=== PATIENT | male | born 1925 | race Caucasian/White ===

== ENCOUNTER 2017-05-29 10:06 | Inpatient (IN) | payer MEDICARE, OTHER ==
[~2017-05-29] VITALS: Ht 170.2 cm; Wt 80.0 kg
--- NOTE | ~2017-05-29 | US6 ---
[facility] A Service of [facility] RADIOLOGY TEXT RESULTS PATIENT: ROBBI DELGADO JR LOCATION: [address] : [birth year] UNIT #: [id number] AGE: [address]: Gianni De Souza MD SEX: M ORDER DR: [id number] [facility] [address] [place], [place] [address] [id number] I MR#: [id number] Acc #: [id number] NAME: ROBBI DELGADO : 1925 SEX: M STUDY DATE/TIME: 05/30/2017 8:15 UNIT: [facility] ROOM: [facility] STUDY DESCRIPTION: US Abdominal Limited Attending Physician: Gume Guzman M.D. Ordering Physician: Gerardo Don M.D. Primary Care Physician: Louie Bledsoe Jr., M.D. MEDICAL IMAGING REPORT This report is preliminary unless electronic signature is present EXAM Right upper quadrant ultrasound 05/30/2017 HISTORY Right upper quadrant gallbladder distension abnormal gallbladder, CT examination 05/29/2017. FINDINGS Real-time ultrasonography of the right upper quadrant performed. Comparison to a CT examination 05/29/2017. The pancreas is poorly visualized due to overlying bowel gas artifact. Please see CT abdomen and pelvis dated 05/29/2017 for further assessment. No peripancreatic fluid collection suggested on these images. The liver is heterogeneous in echotexture. No focal hepatic parenchymal abnormality is suggested. The portal vein is patent with normal direction of flow. Trace ascites. Small right pleural effusion. Liver upper limits of normal in size measuring about 17.3 cm in craniocaudal extent. The gallbladder is mildly distended measuring 4.4 cm in transverse diameter. This could be physiologic in nature. There is gallbladder sludge and at least 1 gallstone present. The gallbladder wall is upper limits of normal thickness at 3.3 mm. No definite pericholecystic fluid. There is no intrahepatic ductal dilatation. The extrahepatic common duct is dilated at about 7 mm. No obstructing process seen. This could be physiologic in nature. Correlate with laboratory data and clinical presentation for any indications of acute cholecystitis. The right kidney measures 10.2 cm in greatest length. There is generalized renal cortical thinning. There is a calculus in the lower pole of the right kidney measuring up to 5.5 mm in diameter. There is no pericholecystic fluid. IMPRESSION 1. Gallbladder is mildly distended but possibly within physiologic STS. [facility] A Service of [facility] RADIOLOGY TEXT RESULTS PATIENT: ROBBI DELGADO JR LOCATION: [facility]2-11 : [birth year] UNIT #: [id number] AGE: [address]: Gianni De Souza MD SEX: M ORDER DR: limits. Gallbladder sludge and at least 1 gallstone are seen. There is gallbladder wall prominence relative to volume with gallbladder wall measuring about 3.3 mm in thickness. The constellation of findings could be a reflection of cholecystitis. Please correlate with laboratory data and clinical presentation. There is no intrahepatic biliary ductal dilatation. The extrahepatic common duct is prominent at 7 mm in diameter. No obstructing process seen on this examination. Again correlate with laboratory data. Given patient's age, it is possible that this caliber of common bile duct is within physiologic limits. 2 Trace ascites adjacent to the liver. 3. Small right pleural effusion. 4. Right lower pole renal calculus. 5. Pancreas poorly visualized due to bowel gas obscuration. See yesterday's CT for further assessment. Dictated by... Boston Card M.D. THIS IS AN ELECTRONICALLY VERIFIED REPORT Boston Card M.D. at 05/31/2017 6:17 PM Merlene TD: 05/30/2017 10:54 JOB #: [id number] MEDICAL IMAGING REPORT Page 1 of 1 COPY
--- NOTE | ~2017-05-29 | CT4 ---
[facility] A Service of [facility] & [facility] RADIOLOGY TEXT RESULTS PATIENT: ROBBI DELGADO JR LOCATION: [address] : [birth year] UNIT #: [id number] AGE: [address]: Khai Shafer MD SEX: M ORDER DR: [id number] [facility] [address] [place], [place] [address] [id number] I MR#: [id number] Acc #: [id number] NAME: ROBBI DELGADO : 1925 SEX: M STUDY DATE/TIME: 05/29/2017 13:12 UNIT: [facility] ROOM: [facility] STUDY DESCRIPTION: CT Abd and Pelv Wo Cont Attending Physician: Khai Shafer M.D. Ordering Physician: Khai Shafer M.D. Primary Care Physician: Louie Bledsoe Jr., M.D. MEDICAL IMAGING REPORT This report is preliminary unless electronic signature is present EXAM Abdomen and pelvis CT without contrast, 05/29/2017 INDICATION Cardiogenic shock acidosis, heartburn 3 days, acute renal injury. Decreased appetite. Ventilator patient. Shortness of air. TECHNIQUE Noncontrast CT of the abdomen and pelvis was performed. This CT exam was performed with one or more of the following radiation dose reduction techniques: automatic exposure control, adjustment of mA and/or kV according to patient size, and iterative reconstruction. COMPARISON None FINDINGS CT ABDOMEN: Exam degraded by noncontrast technique. Please see separately dictated chest CT for further details. At least moderate bilateral effusions are present with compressive atelectasis or pneumonia in both lung bases. No pericardial effusion. Aorta demonstrates no aneurysm with significant atherosclerotic change. IVC filter present. Spleen and adrenal glands are unremarkable. The kidneys are nonobstructed. There is inflammatory change and wall thickening of the gallbladder in the setting of cholelithiasis with inflammatory change extending into the pancreaticoduodenal groove. There is atrophy of the pancreas and inflammatory change extending into the peripancreatic fat and celiac takeoff. Imaging findings suggest acute cholecystitis although acute pancreatitis and secondary involvement of the gallbladder is also in the differential. Correlate with laboratory data. Probable reactive adjacent lymph nodes. Trace perihepatic ascites. No intra or STS. [facility] A Service of [facility] & [facility] RADIOLOGY TEXT RESULTS PATIENT: ROBBI DELGADO JR LOCATION: [facility]2-11 : [birth year] UNIT #: [id number] AGE: [address]: Khai Shafer MD SEX: M ORDER DR: extrahepatic biliary ductal dilatation. Liver otherwise unremarkable. CT PELVIS: Bladder decompressed by a Tran catheter. Prostate unremarkable. Small amount of free fluid in the pelvis. Diverticulosis. Trace fluid in both pericolic gutters. Appendix normal. No inguinal adenopathy or fluid collection. Right femoral central line present. No suspicious bone lesion. The bones are osteoporotic. IMPRESSION 1. Abnormal examination. Imaging findings are most characteristic of acute cholecystitis or potentially acute pancreatitis. Correlate with laboratory data. Findings called to the patient's nurse at the time of this dictation. 2. Small amount of peripancreatic, perihepatic, perisplenic fluid tracking into the pericolic gutters and the pelvis. No drainable fluid collection. 3. Bilateral effusions with compressive atelectasis or pneumonia in both lung bases. 4. Diverticulosis. 5. Appendix normal. STAT * RESULT Dictated by... Ced Maier M.D. THIS IS AN ELECTRONICALLY VERIFIED REPORT Ced Maier M.D. at 05/29/2017 10:41 PM Jose Luis TD: 05/29/2017 16:28 JOB #: [id number] MEDICAL IMAGING REPORT Page 1 of 1 COPY
--- NOTE | ~2017-05-29 | EKG ---
PATIENT: ROBBI DELGADO UNIT #: [id number] Ventricular Rate: 94 BPM Atrial Rate: 113 BPM QRS Duration: 92 ms Q-T Interval: 334 ms QTC Calculation(Bezet): 417 ms Calculated R [place]: -6 degrees Calculated T [place]: -175 degrees Diagnosis Line: Atrial fibrillation Diagnosis Line: Low voltage QRS Diagnosis Line: Cannot rule out Inferior infarct , age Diagnosis Line: undetermined Diagnosis Line: Cannot rule out Anteroseptal infarct , age Diagnosis Line: undetermined Diagnosis Line: Abnormal ECG Diagnosis Line: When compared with ECG of 30-MAY-2017 12:19, Diagnosis Line: (unconfirmed) Diagnosis Line: Left bundle branch block is no longer Present Diagnosis Line: Minimal criteria for Anteroseptal infarct are now Diagnosis Line: Present Diagnosis Line: Minimal criteria for Inferior infarct are now Diagnosis Line: Present Diagnosis Line: Confirmed by CECIL TOTH MD ([id number]) on 05/31/2017 Diagnosis Line: 5:00:34 PM INTERPRETING MD: NAVNEET QUICK
--- NOTE | ~2017-05-29 | US77 ---
[facility] A Service of [facility] & [facility] RADIOLOGY TEXT RESULTS PATIENT: ROBBI DELGADO JR LOCATION: [address] : [birth year] UNIT #: [id number] AGE: [address]: Gianni De Souza MD SEX: M ORDER DR: [id number] [facility] [address] [place], [place] [address] [id number] I MR#: [id number] Acc #: [id number] NAME: ROBBI DELGADO JR : 1925 SEX: M STUDY DATE/TIME: 05/30/2017 8:24 [facility]: [facility] STUDY DESCRIPTION: US Kidney Bilateral Complete Attending Physician: Gume Guzman M.D. Ordering Physician: Tereso Spence M.D. Primary Care Physician: Louie Bledsoe Jr., M.D. MEDICAL IMAGING REPORT This report is preliminary unless electronic signature is present EXAM Renal ultrasound bilateral, 05/30/2017 HISTORY Acute renal failure, abnormal renal function tests. Elevated BUN of 39, elevated creatinine of 2.4. Abnormally low GFR of 23.1. Chronic kidney disease stage 4. Followup diabetes and hypertension. FINDINGS The right kidney measures 10.8 cm while the left kidney measures 12.4 cm in longitudinal dimensions. There is no evidence of hydronephrosis. There is a 7 mm nonobstructing stone in the lower pole of the right kidney. No solid mass lesions are identified. There is normal renal cortical echogenicity but there is cortical thinning bilaterally. The bladder was decompressed by a Tran catheter and therefore poorly visualized. IMPRESSION 1. Both kidneys demonstrate cortical thinning but there is no evidence of hydronephrosis. Nonobstructing right renal stone. 2. The bladder was empty for the exam and therefore poorly visualized. Dictated by... Yonatan Mcnair M.D. THIS IS AN ELECTRONICALLY VERIFIED REPORT Yonatan Mcnair M.D. at 05/31/2017 7:25 AM JUAN/pilar TD: 05/31/2017 02:28 JOB #: [id number] [facility] A Service of [facility] & [facility] RADIOLOGY TEXT RESULTS PATIENT: ROBBI DELGADO JR LOCATION: [facility] : [birth year] UNIT #: [id number] AGE: [address]: Gianni De Souza MD SEX: M ORDER DR: MEDICAL IMAGING REPORT Page 1 of 1 COPY
--- NOTE | ~2017-05-29 | CO ---
Unit #: [id number] #: [id number] Patient: SONIA ISBELL JR [id number] [address] [place], [place] [address] [id number] I MR#: [id number] NAME: SONIA ISBELL ROOM: [facility] Age: 89 Sex: M Admission Date: 05/29/2017 : 1925 Attending Physician: Gume Guzman M.D. Primary Care Physician: Louie Bledsoe Jr., M.D. Consultation Date: 05/29/2017 CONSULTATION REPORT REASON FOR CONSULTATION Renal failure and hyperkalemia. Thank you very much for asking me to see this patient in consultation. HISTORY OF PRESENT ILLNESS Mr. Sonia Isbell is an 89-year-old male, who presented to the hospital here, unable to find a family. They are apparently somewhere around, but I have gone to four to five different places and I cannot find them, but apparently according to the ER, came in with some epigastric lower chest pain, weakness, and shortness of breath for 3 days. Upon presentation, noted to have a BUN and creatinine 42 and 2.7 with potassium of 6.4, bicarb of 18. He had a troponin increased to 13.8. He was subsequently intubated and now is on pressor, Levophed drip I believe as well as IV fluids and normal saline and antibiotics ordered. We were asked to see the patient because of the above. Reviewing the records, the patient was noted in 09/2015 to have a creatinine of 1.4. In reviewing his records, his creatinine has been 1.3 to 1.4 plus or minus intermittently over the last few years. 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 Again, he is currently intubated, decreased response. Blood pressure currently in the 90s. PAST MEDICAL HISTORY Again, through the chart, he has a history of atherosclerotic coronary artery disease, history of atrial fibrillation in the past, he is on chronic Coumadin, status post pacemaker, history of hypertension, history of diabetes mellitus, history of osteoarthritis, history of probable chronic kidney disease, stage 3 again with creatinine baseline 1.4. 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 ALLERGIES Include Ambien. SOCIAL HISTORY He does not smoke or drink. MEDICATIONS At home include Catapres, Coumadin, metoprolol, amlodipine, losartan, and Protonix. Here, he is on normal saline currently; although, a bicarb drip was ordered, had not started it yet. Sitting at bedside. Levophed drip. ProAmatine was ordered; although, certainly had not started yet. Maxipime, Versed, doxycycline, Protonix. He was also ordered some Kayexalate, but again unable to get that at this moment in time, but a Dobhoff tube has been ordered. Unit #: [id number] #: [id number] Patient: SONIA ISBELL JR REVIEW OF SYSTEMS As mentioned in the HPI. Really unable to obtain. FAMILY HISTORY Unable to obtain. PHYSICAL EXAMINATION VITAL SIGNS: Temperature is 97.6, pulse 63 to 66, blood pressure 73 to 98 over 50s to 80s. HEENT: He is normocephalic and atraumatic. His pupils are sluggish, but reactive. He is orally intubated. NECK: Supple. No adenopathy. CARDIAC: He is without a rub. No S3 or S4. LUNGS: Have a few rhonchi only. ABDOMEN: Bowel sounds positive. Nontender, soft. No masses felt. No hepato-organomegaly noted. EXTREMITIES: He has no lower extremity swelling. His pulses are intact in upper and lower extremities. JOINTS: No joint pain or joint swelling. SKIN: No acute rashes. NEUROLOGIC: Again, decreased response. : Tran catheter is in place. Normal penis and testicles. DIAGNOSTIC STUDIES LABORATORY RESULTS: Initially, his sodium was 140, potassium 6.4, chloride is 108, bicarb is 18, BUN and creatinine are 42 and 2.7, glucose 128, calcium is 9.1, phosphorus 3.7, magnesium is 2.1, lactic acid is 6, albumin is 3.3. His anion gap is 14. Repeat labs showed a sodium of 141, potassium down to 5.6, chloride 114, bicarb is 16 now, BUN of 40 and creatinine 2.4. AST is 173, ALT is 41. CPK is 803 with a troponin of 13.8. INR is 3.5. Hemoglobin 12.8, white count 21,000, platelets 195,000. IMAGING STUDIES: Chest x-ray was consistent with some pulmonary edema. CT scan of the chest and stat echo again had been ordered and are pending. ASSESSMENT AND PLAN 1. Acute kidney injury on probable chronic kidney disease, stage 3. The patient with again increased BUN and creatinine, most likely combination of hypotension and acute tubular necrosis. He also appears to be septic at least with increased white count and hypotension; although, with certainly increased troponin, he could have some sort of cardiac event as well. Certainly, agree with checking a stat echo. Agree with current treatment of fluids and a bicarb drip, although, has not again started yet. We will check urine studies. If CT scan of the abdomen and pelvis had not been ordered, then we will go ahead and do a renal ultrasound portable as well. We will check labs later this afternoon and then in morning. I am going to continue to look for family to see if we can discuss if things do not improve, if they want him to be put on the dialysis machine or not. Again, I need to discuss it with them. 2. Hyperkalemia secondary to renal failure, acidosis. Potassium is down to 5.6. We will recheck again and treat medically if possible. 3. Acidosis, the patient with mild increased anion gap. Most likely, the acidosis is related to lactic acidosis as well as acute renal failure. I agree with bicarb drip. Hopefully, will improve with increased blood pressure etc. 4. Increased troponin, probable myocardial infarction. 5. Rule out sepsis. Unit #: [id number] #: [id number] Patient: SONIA ISBELL JR 6. Diabetes mellitus. Dictated by.Rosana Spence M.D. MARYCHUY/melal TD: 05/29/2017 16:08 JOB #: [id number] CONSULTATION REPORT Page 1 of 1 X Neelima Spence MD X CONSULTATION REPORT
--- NOTE | ~2017-05-29 | CR72 ---
[facility] A Service of [facility] & [facility] RADIOLOGY TEXT RESULTS PATIENT: ROBBI DELGADO JR LOCATION: [facility]2-11 : [birth year] UNIT #: [id number] AGE: [address]: Gume Guzman MD SEX: M ORDER DR: [id number] [facility] [address] [place], [place] [address] [id number] MR#: [id number] Acc #: [id number] NAME: ROBBI DELGADO JR : 1925 SEX: M STUDY DATE/TIME: 05/29/2017 10:47 UNIT: [facility] ROOM: STUDY DESCRIPTION: CR Chest Single View Portable Attending Physician: Zander Dc M.D. Ordering Physician: Zander Dc M.D. Primary Care Physician: Louie Bledsoe Jr., M.D. MEDICAL IMAGING REPORT This report is preliminary unless electronic signature is present EXAM Portable chest, 05/29/2017 HISTORY Shortness of breath, heartburn and generalized weakness for 3 days. Benign essential hypertension and diabetes, coronary artery disease and prior cardiac bypass surgery. FINDINGS The cardiac and mediastinal structures are stable compared with 10/05/2015 status post median sternotomy. Cardiac pacemaker is unchanged. There are interstitial infiltrates suggesting mild pulmonary edema. Blunting of the costophrenic angles is seen bilaterally. No pneumothorax. IMPRESSION Interstitial infiltrates suggest mild pulmonary edema. Dictated by... Yonatan Mcnair M.D. THIS IS AN ELECTRONICALLY VERIFIED REPORT Yonatan Mcnair M.D. at 05/30/2017 10:34 AM JUAN/richmond TD: 05/29/2017 11:03 JOB #: [id number] MEDICAL IMAGING REPORT Page 1 of 1 COPY
--- NOTE | ~2017-05-29 | CR72 ---
[facility] A Service of [facility] & [facility] RADIOLOGY TEXT RESULTS PATIENT: ROBBI DELGADO JR LOCATION: [place] [address]-11 : [birth year] UNIT #: [id number] AGE: [address]: Khai Shafer MD SEX: M ORDER DR: [id number] [place] [id number] [facility] [place], [place] [address] [id number] I MR#: [id number] Acc #: [id number] NAME: ROBBI DELGADO : 1925 SEX: M STUDY DATE/TIME: 05/29/2017 18:35 UNIT: [facility] ROOM: [facility] STUDY DESCRIPTION: CR Chest Single View Portable Attending Physician: Khai Shafer M.D. Ordering Physician: Khai Shafer M.D. Primary Care Physician: Louie Bledsoe Jr., M.D. MEDICAL IMAGING REPORT This report is preliminary unless electronic signature is present EXAM Frontal chest 05/29/2017 INDICATIONS Dobbhoff tube placement TECHNIQUE Frontal chest was performed. Correlation is made with CT 15:35 hours FINDINGS There is an enteric tube present the tip projects just distal to the yuly by a distance of about 2 cm. Suggest advancement on the order of 15-20 cm for positioning at the level of the stomach. A followup radiograph should be performed to confirm appropriate placement prior to usage of the tube. There are bilateral effusions. There is atelectasis or pneumonia in both mid and lower lung zones. No pneumothorax. Upper lung zone on the right excluded from view. IMPRESSION 1. Enteric tube tip is just inferior to the level of the yuly. This suggests placement within the esophagus. Suggest advancement of the tube to the level of the stomach with a followup radiograph to document appropriate positioning of the tube prior to usage of the tube. 2. No pneumothorax. Bilateral pleural effusions with bibasilar atelectasis or pneumonia. STAT * RESULT Dictated by... [facility] A Service of [facility] RADIOLOGY TEXT RESULTS PATIENT: ROBBI DELGADO JR LOCATION: [address] : [birth year] UNIT #: [id number] AGE: [address]: Khai Shafer MD SEX: M ORDER DR: Ced Maier M.D. THIS IS AN ELECTRONICALLY VERIFIED REPORT Ced Maier M.D. at 05/29/2017 10:47 PM Natalie TD: 05/29/2017 19:41 JOB #: [id number] MEDICAL IMAGING REPORT Page 1 of 1 COPY
--- NOTE | ~2017-05-29 | EKG ---
PATIENT: ROBBI DELGADO UNIT #: [id number] Ventricular Rate: 102 BPM Atrial Rate: 102 BPM P-R Interval: 144 ms QRS Duration: 178 ms Q-T Interval: 436 ms QTC Calculation(Bezet): 568 ms Calculated R [place]: -68 degrees Calculated T [place]: 86 degrees Diagnosis Line: Electronic ventricular pacemaker Diagnosis Line: When compared with ECG of 31-MAY-2017 06:14, Diagnosis Line: Electronic ventricular pacemaker has replaced Diagnosis Line: Atrial fibrillation Diagnosis Line: Confirmed by GUI CORBETT MD ([id number]) on Diagnosis Line: 06/02/2017 10:50:29 AM INTERPRETING MD: ARIC QUICK
--- NOTE | ~2017-05-29 | EKG ---
PATIENT: ROBBI DELGADO UNIT #: [id number] Ventricular Rate: 83 BPM Atrial Rate: 357 BPM QRS Duration: 142 ms Q-T Interval: 398 ms QTC Calculation(Bezet): 467 ms Calculated R [place]: -6 degrees Calculated T [place]: 178 degrees Diagnosis Line: Atrial fibrillation Diagnosis Line: Left bundle branch block Diagnosis Line: Abnormal ECG Diagnosis Line: When compared with ECG of 29-MAY-2017 10:34, Diagnosis Line: Atrial fibrillation has replaced Normal sinus Diagnosis Line: rhythm Diagnosis Line: Confirmed by CECIL TOTH MD ([id number]) on 05/31/2017 Diagnosis Line: 4:54:58 PM INTERPRETING MD: NAVNEET QUICK
--- NOTE | ~2017-05-29 | CR72 ---
[facility] A Service of [facility] & [facility] RADIOLOGY TEXT RESULTS PATIENT: ROBBI DELGADO JR LOCATION: [place] [id number] : [birth year] UNIT #: [id number] AGE: [address]: Gianni De Souza MD SEX: M ORDER DR: [id number] [facility] [address] [place], [place] [address] [id number] I MR#: [id number] Acc #: [id number] NAME: ROBBI DELGADO JR : 1925 SEX: M STUDY DATE/TIME: 05/31/2017 4:19 UNIT: [facility] ROOM: [facility] STUDY DESCRIPTION: CR Chest Single View Portable Attending Physician: Gianni De Souza M.D. Ordering Physician: Chaparro Bruner M.D. Primary Care Physician: Louie Bledsoe Jr., M.D. MEDICAL IMAGING REPORT This report is preliminary unless electronic signature is present EXAM Portable chest INDICATION Respiratory failure, follow up. PROCEDURE Frontal view of the chest. COMPARISON 05/30/2017. FINDINGS Stable heart size. Increasing right pleural effusions. Stable small left effusion. ET tube is stable. IMPRESSION Increasing right pleural effusion. Otherwise, stable. Dictated by... Junito Lynn M.D. THIS IS AN ELECTRONICALLY VERIFIED REPORT Junito Lynn M.D. at 06/01/2017 9:56 PM EED/rodrigue TD: 05/31/2017 11:24 JOB #: [id number] MEDICAL IMAGING REPORT Page 1 of 1 COPY
--- NOTE | ~2017-05-29 | CR72 ---
[facility] A Service of [facility] & [facility] RADIOLOGY TEXT RESULTS PATIENT: ROBBI DELGADO JR LOCATION: [facility]ICCU2-11 : [birth year] UNIT #: [id number] AGE: [address]: Gianni De Souza MD SEX: M ORDER DR: [id number] [facility] [address] [place], [place] [address] [id number] I MR#: [id number] Acc #: [id number] NAME: ROBBI DELGADO : 1925 SEX: M STUDY DATE/TIME: 05/29/2017 13:58 UNIT: CEDOF ROOM: [id number] STUDY DESCRIPTION: CR Chest Single View Portable Attending Physician: Khai Shafer M.D. Ordering Physician: Zander Dc M.D. Primary Care Physician: Louie Bledsoe Jr., M.D. MEDICAL IMAGING REPORT This report is preliminary unless electronic signature is present EXAM Portable AP view of the chest COMPARISON May 29, 2017 at 10:47 a.m. and March 05, 2016 INDICATIONS Patient 89-year-old male with acute respiratory failure today requiring endotracheal intubation. Evaluation of endotracheal tube. FINDINGS/IMPRESSION There is new endotracheal tube with the tip terminating approximately 3.4 cm above the yuly. This is adequately positioned. Changes of CABG are again noted. Cardiomediastinal silhouette is likely within normal limits for portable technique and when allowing for patient rotation. There are increasing interstitial and alveolar opacities throughout the lungs which may reflect atelectasis or acute aspiration pneumonitis. Also consider pulmonary edema. Developing small left pleural effusion cannot be excluded. No evidence of pneumothorax. Calcification of the aortic arch. Multi lead right chest pacemaker device appears stable. Near touching of the humeral head and undersurface of the acromion on the right suggesting full thickness rotator cuff tear. Dictated by... Ronald Huynh M.D. THIS IS AN ELECTRONICALLY VERIFIED REPORT Roanld Huynh M.D. at 06/04/2017 8:57 PM BLM/to TD: 05/29/2017 15:00 JOB #: [id number] [facility] A Service of [facility] & [facility] RADIOLOGY TEXT RESULTS PATIENT: ROBBI DELGADO JR LOCATION: [facility] : [birth year] UNIT #: [id number] AGE: [address]: Gianni De Souza MD SEX: M ORDER DR: MEDICAL IMAGING REPORT Page 1 of 1 COPY
--- NOTE | ~2017-05-29 | DS ---
Unit #: [id number] #: [id number] Patient: ROBBI DELGADO JR [id number] [address] [place], [place] [address] [id number] I MR#: [id number] NAME: ROBBI DELGADO ROOM: [facility] Age: 89 Sex: M Admission Date: 05/29/2017 : 1925 Discharge Date: 06/01/2017 Attending Physician: Gianni De Souza M.D. Primary Care Physician: Louie Bledsoe Jr., M.D. DISCHARGE SUMMARY Please note the patient has been made comfort care measures only. HISTORY OF PRESENT ILLNESS/HOSPITAL COURSE The patient is an 89-year-old male, admitted secondary to weakness/septic shock. Please refer to H and P for complete details. Essentially, the patient was noted to have lactic acidosis, elevated troponins, as well as acute hypoxic respiratory failure. His chart was both septic versus cardiogenic while he was initially admitted. He was subsequently intubated and placed in the ICU. Appropriate consultations were placed to Cardiology, Renal, as well as Pulmonary Services. Through his hospital course, she underwent a CT of the abdomen and pelvis which raised the possibility of acute cholecystitis as a possible etiology for underlying septic shock. He also was noted to have a 2D echocardiogram showing an ejection fraction of 10% to 15% as well. He required multiple pressors for maintenance of his blood pressure. Despite pressor support and broad-spectrum IV antibiotics, the patient unfortunately deteriorated and after a discussion extensively with the patient's family including his three daughters, all parties were in agreement that his overall prognosis was poor. They stated they did not wish for him to suffer in any further way and elected for terminal extubation as well as comfort care measures only. This will be carried out in accordance with his wishes as well as with the family's wishes. FINAL/CURRENT CLINICAL DIAGNOSES 1. Shock, cardiogenic versus septic. 2. Acute systolic heart failure, ejection fraction 10%. 3. Coronary artery disease with prior history of coronary artery bypass grafting. 4. Ypa-FL-fvsblztmq myocardial infarction. 5. Acute hypoxic respiratory failure. 6. Acute kidney injury. 7. Hypoperfusion. 8. Status post pacemaker in the past. 9. Transaminitis/shock liver. 10. Likely acute cholecystitis. DISCHARGE DISPOSITION Comfort care measures only/terminal extubation. Routine comfort measures have been already initiated. Dictated by... Unit #: [id number] #: [id number] Patient: DELGADO ROBBI JEFFERY M.D. ISN/zaida TD: 06/05/2017 06:51 JOB #: [id number] DISCHARGE SUMMARY Page 1 of 1 X Gianni De Souza MD X DISCHARGE SUMMARY
--- NOTE | ~2017-05-29 | HP ---
Unit #: [id number] #: [id number] Patient: ROBBI DELGADO JR [id number] [address] [place], [place] [address] [id number] I MR#: [id number] NAME: ROBBI DELGADO ROOM: [facility] Age: 89 Sex: M Admission Date: 05/29/2017 : 1925 Attending Physician: Khai Shafer M.D. Primary Care Physician: Louie Bledsoe Jr., M.D. HISTORY AND PHYSICAL CHIEF COMPLAINT Shortness of breath. HISTORY OF PRESENT ILLNESS The patient is an 89-year-old male, brought in by relatives, who has had several days of heartburn. It had become severe, and the patient basically got to where he refused to eat. Apparently today he became short of breath, and family brought him to the emergency department. At the time of my interview the patient is intubated and unable to provide a history. PAST MEDICAL HISTORY Past medical history per old records: Coronary artery disease, hypertension, diabetes, tachybrady syndrome. PAST SURGICAL HISTORY Pacemaker placement. SOCIAL HISTORY No tobacco, alcohol, illicit drug use. Patient lives with family. FAMILY HISTORY Unable to obtain. HOME MEDICATIONS 1. Cozaar 25 mg daily. 2. Protonix 40 mg daily. 3. Amlodipine 10 mg daily. 4. Metoprolol 50 mg p.o. b.i.d. 5. Coumadin 2 mg daily. 6. Clonidine 0.2 mg p.o. daily. ALLERGIES Ambien. REVIEW OF SYSTEMS Unable to obtain. PHYSICAL EXAM VITAL SIGNS: Blood pressure ranges 72/55 to 98/80, temperature 97.6, pulse 63. GENERAL: 89-year-old male. No acute distress who is on the ventilator. HEENT: Normocephalic, atraumatic. Pupils are equally round. NECK: No JVD. No lymphadenopathy. CARDIAC: Regular rate and rhythm. No murmurs, gallops or rubs. Unit #: [id number] #: [id number] Patient: ROBBI DELGADO JR LUNGS: Clear to auscultation bilaterally with bilateral breath sounds. ABDOMEN: Soft. Nondistended. No hepatosplenomegaly. EXTREMITIES: No clubbing, cyanosis or edema. They are cool, dry. SKIN: No rashes, bruises or ulcers. MUSCULOSKELETAL: No muscle swelling. No joint swelling. DIAGNOSTIC STUDIES LABORATORIES: Creatinine is 2.7, potassium is 6.4, bicarb is 18. AST and ALT are 173 and 41 respectively. White count is 21. INR is 3.5. Troponin 13.8. Lactic acid 6.0. IMAGING: Chest x-ray shows possible pulmonary edema but no clear infiltrate. ASSESSMENT AND PLAN 1. Shock. It is unclear the type at this point - septic versus cardiogenic. I do not see a clear source of sepsis. The patient does not appear to have UTI or pneumonia. The elevation in his lactic acid could be secondary to hypoperfusion from cardiogenic shock. Two-D echo has been ordered. The patient has been started on pressors. The patient has received antibiotics for coverage just in case. 2. Acute respiratory failure. Developing pneumonia versus heart failure. The patient has been placed on the ventilator and is requiring high PEEP at this time. 3. Acute kidney injury. Possible ATN from hypotension. Consult has been placed to renal. 4. NSTEMI. The patient's troponin is 13. Cardiology consult has been placed. 5. Prophylaxis. No DVT prophylaxis at this time. Patient's INR is 3.5. Dictated by Khai Shafer M.D. HEBERT/chico TD: 05/29/2017 20:07 JOB #: [id number] HISTORY AND PHYSICAL Page 1 of 1 X Khai Shafer MD HISTORY AND PHYSICAL
--- NOTE | ~2017-05-29 | CO ---
Unit #: [id number] #: [id number] Patient: ROBBI DELGADO JR [id number] [address] [place], [place] [address] [id number] I MR#: [id number] NAME: ROBBI DELGADO ROOM: [id number] Age: 89 Sex: M Admission Date: 05/29/2017 : 1925 Attending Physician: Khai Shafer M.D. Primary Care Physician: Louie Bledsoe Jr., M.D. Consultation Date: 05/29/2017 CONSULTATION REPORT REASON FOR CONSULT ICU management. CHIEF COMPLAINT Heartburn. HISTORY OF PRESENT ILLNESS This is a very pleasant 89-year-old male with past medical history significant for coronary artery disease, hypertension, diabetes, chronic kidney disease who presented to the emergency room feeling bad for the last couple weeks. His daughter, who is at bedside, stated that he was complaining of heartburn for the last few days and family denied any fever, chills or night sweats. Patient was then complaining of clear overt chest pain. Today he was very lethargic and sluggish so family decided to bring him to the emergency room. When I asked the daughter, she denied noticing any cough or sputum production. Patient apparently lives alone and is very independent. He walks with no walker or wheelchair. He is not on oxygen at home. In the emergency room, patient was found to be severely hypoxic and hypotensive. Patient needed to be intubated and central line was placed for pressor support. PAST MEDICAL HISTORY 1. Coronary artery disease. 2. Hypertension. 3. Diabetes. PAST SURGICAL HISTORY 1. Pacemaker placement. SOCIAL HISTORY No history of alcohol, drug abuse or smoking. FAMILY HISTORY Noncontributory given his age. ALLERGY Ambien. HOME MEDICATION 1. Cardizem. Unit #: [id number] #: [id number] Patient: ROBBI DELGADO JR 2. Cardura. 3. Cozaar. 4. Catapres. 5. Aspirin. 6. Coumadin. 7. Metoprolol. 8. Crestor. REVIEW OF SYSTEMS Twelve point review of system were obtained from the patient and his daughters. The only positive things - heartburn and not feeling well. PHYSICAL EXAM GENERAL: The patient appears in acute respiratory distress. VITAL SIGNS: Blood pressure is 79/62, respiratory rate 24, O2 saturation 90% on non-rebreather. HEENT: Atraumatic, normocephalic. PERRLA, EOMI. NECK: Supple. No JVD, no lymphadenopathy. CHEST: Decreased breath sounds bilaterally. HEART: S1, S2 with systolic murmur. ABDOMEN: Soft. Tender to deep palpation. SKIN: Cold but no rash. FLEECE TIER: Awake, alert, following simple commands. LABS AND OTHER TESTS LABORATORY: Creatinine 2.7, potassium 6.4, white blood count 21, hemoglobin 12.8. IMAGING TESTS: Chest x-ray is noted and reviewed by me. ASSESSMENT 1. Acute hypoxic respiratory failure. 2. Septic shock. 3. Acute on chronic kidney disease. 4. Non-ST elevation CA. 5. Rule out congestive heart failure. 6. Rule out pneumonia. 7. History of hypertension. 8. Hyperkalemia. 9. Lactic acidosis. PLAN 1. Patient is critical. Will continue vent support and will assist for spontaneous bleeding trial when more appropriate. 2. IV hydration per sepsis protocol and IV pressors. 3. Broad spectrum antibiotics pending culture. 4. Bronchoscopy in the morning. 5. CT chest, abdomen, pelvis when appropriate. 6. Bronchodilator and mucolytic. 7. Stat echocardiogram to assess for any low ejection fraction. 8. DVT prophylaxis. Patient is on Coumadin with INR 3.5. I would like to thank Dr. Shafer for allowing me to be part of this patient care. Critical care time spent on this patient was 32 minutes. Unit #: [id number] #: [id number] Patient: ROBBI DELGADO JR Dictated by... Annalise Brown TD: 05/29/2017 14:38 JOB #: [id number] CONSULTATION REPORT Page 1 of 1 X TRACEY MADRID MD CONSULTATION REPORT
--- NOTE | ~2017-05-29 | CR72 ---
[facility] A Service of [facility] & [facility] RADIOLOGY TEXT RESULTS PATIENT: ROBBI DELGADO JR LOCATION: [place] [address]-11 : [birth year] UNIT #: [id number] AGE: [address]: Gume Guzman MD SEX: M ORDER DR: [id number] [facility] [address] [place], [place] [address] [id number] I MR#: [id number] Acc #: [id number] NAME: ROBBI DELGADO : 1925 SEX: M STUDY DATE/TIME: 05/30/2017 6:17 UNIT: [facility] ROOM: [facility] STUDY DESCRIPTION: CR Chest Single View Portable Attending Physician: Gume Guzman M.D. Ordering Physician: Chaparro Bruner M.D. Primary Care Physician: Louie Bledsoe Jr., M.D. MEDICAL IMAGING REPORT This report is preliminary unless electronic signature is present EXAM Portable chest. INDICATION Followup infiltrates and endotracheal tube. FINDINGS This portable view of the chest compared with yesterday's study. The Dobbhoff tube has been advanced with its tip in the stomach. Left greater than right lower lobe atelectasis or infiltrate is stable. The endotracheal tube and pacemaker are in good position. Dictated by... Crow Thornton M.D. THIS IS AN ELECTRONICALLY VERIFIED REPORT Crow Thornton M.D. at 05/30/2017 3:08 PM FEL/bd TD: 05/30/2017 08:45 JOB #: [id number] MEDICAL IMAGING REPORT Page 1 of 1 COPY
--- NOTE | ~2017-05-29 | CT57 ---
[facility] A Service of [facility] & [facility] RADIOLOGY TEXT RESULTS PATIENT: ROBBI DELGADO JR LOCATION: [place] [address]11 : [birth year] UNIT #: [id number] AGE: [address]: Khai Shafer MD SEX: M ORDER DR: [id number] [place] [id number] [facility]. [place], [place] [address] [id number] I MR#: [id number] Acc #: [id number] NAME: ROBBI DELGADO JR : 1925 SEX: M STUDY DATE/TIME: 05/29/2017 15:35 UNIT: [facility] ROOM: [facility] STUDY DESCRIPTION: CT Chest Wo Cont Attending Physician: Khai Shafer M.D. Primary Care Physician: Louie Bledsoe Jr., M.D. MEDICAL IMAGING REPORT This report is preliminary unless electronic signature is present EXAM Chest CT, no contrast, 05/29/2017 INDICATIONS An 89-year-old male with acidosis cardiogenic shock heartburn 3 days loss of appetite 3 days, short of air. Ventilator management. TECHNIQUE Noncontrast chest CT was performed and compared 10/06/2015. This CT exam was performed with one or more of the following radiation dose reduction techniques: automatic exposure control, adjustment of mA and/or kV according to patient size, and iterative reconstruction. FINDINGS CT chest: Please see the separately abdomen and pelvis CT same day for findings for further details regarding findings below the diaphragm. . There are bilateral pleural effusions. There is compressive atelectasis or pneumonia in the lung bases. There are parenchymal areas of nodularity in the upper lobe on the left measuring 12 and 9 mm respectively. These are probably inflammatory or infectious or secondary to rounded atelectasis but warrant followup CT in 3 months to document stability or decrease in size. There is old healed granulomatous disease. No pneumothorax. ET tube tip in good position above the yuly. Probable reactive supraclavicular node on the left measures less than a centimeter short axis. Reactive-appearing mediastinal nodes. Aorta demonstrates atherosclerotic change. Old healed granulomatous disease and coronary artery calcifications. [facility] A Service of [facility] & [facility] RADIOLOGY TEXT RESULTS PATIENT: ROBBI DELGADO JR LOCATION: [address] : [birth year] UNIT #: [id number] AGE: [address]: Khai Shafer MD SEX: M ORDER DR: Included upper abdomen demonstrates imaging findings most characteristic of acute cholecystitis or less likely acute pancreatitis. There are gallstones in the gallbladder. There is wall thickening and fluid in the gallbladder fossa with ascites adjacent to the liver, spleen and tracking in the pericolic gutters and into the peripancreatic fat. Please see the abdomen and pelvis CT for further details. No suspicious bone lesion. The bones are osteoporotic. IMPRESSION 1. Imaging findings most characteristic of acute cholecystitis or less likely acute pancreatitis. See the abdomen and pelvis CT for further details. Findings were called the patient's nurse at the time that study interpretation. 2. Bilateral pleural effusions with bibasilar atelectasis or pneumonia. 3. Nonspecific indeterminate nodularity in the upper lobe on the left measuring 9 and 12 mm respectively. Short-term followup CT in 3 months recommended for reassessment. STAT * RESULT Dictated by... Ced Maier M.D. THIS IS AN ELECTRONICALLY VERIFIED REPORT Ced Maier M.D. at 05/29/2017 10:41 PM Natalie TD: 05/29/2017 17:10 JOB #: [id number] MEDICAL IMAGING REPORT Page 1 of 1 COPY
--- NOTE | ~2017-05-29 | CR6 ---
[facility] A Service of [facility] & [facility] RADIOLOGY TEXT RESULTS PATIENT: ROBBI DELGADO JR LOCATION: [place] [address]11 : [birth year] UNIT #: [id number] AGE: [address]: Gume Guzman MD SEX: M ORDER DR: [id number] [facility] [address] [facility] [place], [place] [address] [id number] I MR#: [id number] Acc #: [id number] NAME: ROBBI DELGADO : 1925 SEX: M STUDY DATE/TIME: 05/29/2017 18:38 UNIT: [facility] ROOM: [facility] STUDY DESCRIPTION: CR Abdomen Portable Sng View Attending Physician: Khai Shafer M.D. Ordering Physician: Khai Shafer M.D. Primary Care Physician: Louie Bledsoe Jr., M.D. MEDICAL IMAGING REPORT This report is preliminary unless electronic signature is present EXAM Frontal abdomen, 05/29/2017 INDICATION Dobbhoff tube placement. TECHNIQUE Frontal abdomen was performed and compared with frontal chest 1835 hours. FINDINGS The enteric tube tip is now at the level of the proximal body stomach. No other significant interval change from the prior examination for technical factors. IMPRESSION The tip of the enteric tube is now at the level of the proximal body stomach. Dictated by... Ced Maier M.D. THIS IS AN ELECTRONICALLY VERIFIED REPORT Ced Maier M.D. at 05/30/2017 8:29 AM Zeenat TD: 05/30/2017 00:44 JOB #: [id number] MEDICAL IMAGING REPORT Page 1 of 1 COPY
--- NOTE | ~2017-05-29 | CR72 ---
[facility] A Service of [facility] & [facility] RADIOLOGY TEXT RESULTS PATIENT: ROBBI DELGADO JR LOCATION: [address] : [birth year] UNIT #: [id number] AGE: [address]: Gianni De Souza MD SEX: M ORDER DR: [id number] [facility] [address] [facility]. [place], [place] [address] [id number] I MR#: [id number] Acc #: [id number] NAME: ROBBI DELGADO : 1925 SEX: M STUDY DATE/TIME: 06/01/2017 5:48 UNIT: [facility] ROOM: [facility] STUDY DESCRIPTION: CR Chest Single View Portable Attending Physician: Gianni De Souza M.D. Ordering Physician: Chaparro Bruner M.D. Primary Care Physician: Louie Bledsoe Jr., M.D. MEDICAL IMAGING REPORT This report is preliminary unless electronic signature is present EXAM Portable chest. INDICATION Respiratory failure and cardiogenic shock. FINDINGS Endotracheal tube is present which terminates above the level of the yuly. Weighted enteric feeding tube extends into the stomach. Patient has cardiomegaly and vascular congestion not significantly changed when compared to prior study. There are bilateral pleural effusions. No pneumothorax is present. Right-sided pacemaker is noted. This patient is status post median sternotomy with coronary artery bypass grafting. Dictated by... Laura Silvestre M.D. THIS IS AN ELECTRONICALLY VERIFIED REPORT Laura Silvestre M.D. at 06/01/2017 2:43 PM AFF/df TD: 06/01/2017 11:18 JOB #: [id number] MEDICAL IMAGING REPORT Page 1 of 1 COPY
--- NOTE | ~2017-05-29 | CO ---
Unit #: [id number] #: [id number] Patient: ROBBI DELGADO JR [id number] [address] [place], [place] [address] [id number] MR#: [id number] NAME: ROBBI DELGADO ROOM: [facility] Age: 89 Sex: M Admission Date: 05/29/2017 : 1925 Attending Physician: Gume Guzman M.D. Primary Care Physician: Louie Bledsoe Jr., M.D. Consultation Date: 05/29/2017 CONSULTATION REPORT REASON FOR CONSULTATION Elevated troponin. HISTORY OF PRESENT ILLNESS The patient is an 89-year-old male, who has an extensive history of coronary artery disease, had coronary artery bypass graft surgery 10 years ago in 2004. He came in with complete heart block, had a permanent pacemaker implanted and underwent pocket revision due to infection and hematoma that device was subsequently moved to the right side. The patient is brought in by his daughters after they felt he was getting increasingly lethargic and short of breath. He does state that he has had some significant indigestion over the last couple of days. He has also been weak and tachycardic. He denies any fever or cough, but has had a decrease in appetite over the last 1 to 2 weeks. PAST MEDICAL HISTORY Significant for chronic kidney disease, diabetes, hypertension, 10 years ago he had coronary artery bypass graft surgery, Dr. Larsen was his machine stacker at that time. He has a permanent pacemaker secondary to complete heart block but had pocket infection and required revision. SOCIAL HISTORY The patient lives independently. His daughters live near him and they check on him on a daily basis. No alcohol or drug abuse. Nonsmoker. FAMILY HISTORY Noncontributory. ALLERGIES Ambien. HOME MEDICATIONS Catapres 0.2 mg at bedtime, Coumadin 2 mg daily, metoprolol tartrate 50 mg b.i.d., Norvasc 10 mg daily, Cozaar 25 mg daily, Protonix 40 mg daily. REVIEW OF SYSTEMS Complains of weakness and fatigue. Denies shortness of breath, but appears to be short of breath. No fever, chills, cough, nausea, vomiting, diarrhea. Complains of indigestion over the last couple of days. No numbness, tingling, headache, or changes in visual field. All other review of systems is negative. PHYSICAL EXAMINATION GENERAL: The patient is awake and alert with some increased respiratory Unit #: [id number] #: [id number] Patient: ROBBI DELGADO JR. Color is pale pink. SKIN: Warm and dry. VITAL SIGNS: Afebrile, heart rate 65, blood pressure 79/55. HEENT: Normal carotid upstrokes. No auscultated bruit. Positive JVD, lying at 45 degrees. No hepatic jugular reflux. CHEST: Respirations are tachypneic, mildly labored at rest with accessory muscle use. Bilateral crackles are noted. ABDOMEN: Soft. HEART: S1, S2. Regular rate and rhythm. No murmurs, rubs, gallops, or clicks. LUNGS: Bilateral breath sounds have rhonchi bilaterally. EXTREMITIES: Bilateral lower extremities have trace to 1+ pretibial pitting edema. DP/PT pulses are 2+. Cap refill less than 3 seconds. DIAGNOSTIC STUDIES CARDIOVASCULAR STUDIES: EKG shows a paced rhythm. IMAGING STUDIES: Chest x-rays shows interstitial infiltrates suggestive of pulmonary edema. LABORATORY RESULTS: Sodium 140, potassium 6.4, chloride 108, CO2 of 18, BUN 42, creatinine 2.7. Lactic acid 6.0. INR 3.5. White blood cell count 21, hemoglobin 12.8, hematocrit 39.1, and platelet count 195. Urinalysis, pending. IMPRESSION 1. Acute non ST-elevation myocardial infarction. 2. Metabolic acidosis. 3. Acute throat kidney injury secondary to hypoperfusion. 4. Hyperkalemia. 5. History of coronary artery disease with coronary artery bypass graft surgery 10 years ago. 6. Permanent pacemaker secondary to complete heart block in 2005. 7. Hypotension. 8. Diabetes. PLAN 1. We will change IV fluids to sodium bicarb 1 L at 75 an hour. We will give Kayexalate stat as well as some calcium gluconate 1 amp to help reverse hyperkalemia. 2. We will hold Coumadin for now as INR is 3.5. We will add p.r.n. nitroglycerin for chest pain. We will also check a stat 2D echo to assess for systolic heart failure. Dictated by... Jenniffer Garcia APRN for Annalise Grant/modl TD: 05/29/2017 18:35 JOB #: [id number] Unit #: [id number] #: [id number] Patient: ROBBI DELGADO JR CONSULTATION REPORT Page 1 of 1 X X CONSULTATION REPORT
--- NOTE | ~2017-05-29 | A ---
[facility] Nutrition Therapy DATE: 05/30/17 Patient: ROBBI DELGADO Physician: QASIM Address: [address] Room/Bed: [address], Zip: [place] [address] Admit Date: 05/29/17 Date of : [birth year] Height: 5 7 Weight: 176 80 NUTRITIONAL ASSESSMENT: REASON: NPO IN ICU ASSESSMENT PT IS 89 Y.O. MALE ADMITTED FOR SHOCK, CHEST PAIN, MARGARITO PMH: CAD, HTN, DM, HX OF PACEMAKER PLACEMENT, CABG, CKD ?STAGE 3 Anthropometrics: 5'7", WT: 157-178# (71-81 KG), BMI: 24.6-27.4 -BEDSIDE WEIGHT: 178# (81 KG). AVERAGE WEIGHT: 168# (76 KG):BMI: 26 Labs: NA+:131, K+:5.2, GLU: 145, BUN: 49, CREAT: 3.1, CA++:5.6, ALB: 2.7, AST: 897, ALT: 589, PHOS: 4.8, GFR: 16.9 Meds: D5%, FENTANYL, VERSED, PROTONIX I/O & Bowel function: 2573/167 Skin Integrity: BLE 1+ EDEMA Estimated Nutrition Needs: [id number] KCAL (22-25 KCAL/KG BW) (AVERAGE WEIGHT) 76-91 G PRO (1.0-1.2 G PRO/ KG BW) Assessment: CHART REVIEWED AND EVENTS NOTED. PT SEEN FOR NPO IN ICU. PT CURRENTLY INTUBATED AND SEDATED AT TIME OF VISIT. NO FAMILY IN ROOM AT THIS TIME. PER RN AND CHART, DHT IN PLACE, BUT NO CURRENT PLANS IN PLACE TO BEGIN ALTERNATIVE NUTRITION SUPPORT AT THIS TIME. PER CHART, PT NOTED TO HAVE DIGESTION & HEARTBURN PAST FEW DAYS, NOTING DECREASE IN APPETITE PAST 1-2 WEEKS. ALSO ?HD AT THIS TIME. PT NOT APPROPRIATE FOR DIET EDUCATION AT THIS TIME. RD TO FOLLOW. SEE RECOMMENDATIONS BELOW. Dx: INADEQUATE ORAL INTAKE R/T CURRENT DIAGNOSIS, VENTILATOR DEPENDENCE AEB NPO STATUS. Intervention: 1. NPO Monitoring, Evaluation and Goals: 1. ENTERAL NUTRITION; INITIATE AND PROVIDE >80% ESTIMATED TOTAL VOLUME X 24 HOURS 2. IMPROVEMENT IN LABS 3. WEIGHTS; PROMOTE WEIGHT MAINTENANCE; PREVENT WEIGHT LOSS MONITOR: PER PROTOCOL, CRITERIA TO DETERMINE IF GOALS ARE MET Recommendations: [facility] Nutrition Therapy DATE: 05/30/17 Patient: ROBBI DELGADO Physician: QASIM Address: [address] Room/Bed: [address], Zip: [place] [address] Admit Date: 05/29/17 Date of : [birth year]/30/[birth year] Height: 5 7 Weight: 176 80 1. ONCE MEDICALLY FEASIBLE AND PT EXTUBATED, ADVANCE DIET PER ADULT SERVICES LIBRARIAN + HEALTHY HEART/CONSISTENT CARBOHYDRATE DIET 2. IF PT REMAINS INTUBATED >24 HOURS, RECOMMEND TO INITIATE ENTERAL NUTRITION SUPPORT OF NEPRO @ 20 ML/HR, ADVANCE 10 ML q 6 HOURS TO GOAL RATE OF 40 ML/HR -PROVIDES 1728 KCAL, 78 G PRO, 701 ML FREE H20 ADD FREE H20 FLUSHES PER MD 2' RENAL FUNCTION DECLINING, HYPONATREMIA NOTED 3. CONTINUE TO MONITOR LABS. REPLACE ELECTROLYTES PRN (K+, PHOS ELEVATED) 4. PLEASE OBTAIN UPDATED/CURRENT A1c TO BETTER ASSESS DM MANAGEMENT RD WILL F/U PER PROTOCOL PT IS SEVERELY COMPROMISED Respectfully, Kimber Daniel, RD, LD [facility] cc: client file
--- NOTE | ~2017-05-29 | EKG ---
PATIENT: ROBBI DELGADO UNIT #: [id number] Ventricular Rate: 63 BPM Atrial Rate: 63 BPM P-R Interval: 204 ms QRS Duration: 142 ms Q-T Interval: 494 ms QTC Calculation(Bezet): 505 ms P [place]: -12 degrees Calculated R [place]: -80 degrees Calculated T [place]: 126 degrees Diagnosis Line: Atrial-sensed ventricular-paced rhythm Diagnosis Line: Abnormal ECG Diagnosis Line: Diagnosis Line: Confirmed by ROMULO PHILLIPS MD ([id number]) on 05/29/2017 Diagnosis Line: 2:07:37 PM INTERPRETING MD: ALAN QUICK
[~2017-05-29 10:06] MED LIST: AMLODIPINE BESY10 MG PO; ASPIRIN PO; ATENOLOL PO; CARDIZEM CD PO; CARDURA PO; CLINORIL PO; CLONIDINE PO; COUMADIN PO; COZAAR PO; CRESTOR10 MG PO; FERROUS SULFATE PO; GLYBURIDE PO; METOPROLOL TAR25 MG PO; NORCO 5/325 TAB1 TAB PO
[2017-05-29 10:58] LABS: BASOPHIL% 0.2 % (0-2.5); HEMATOCRIT 39.1 % (38.0-50.0); HEMOGLOBIN 12.8 gm/dL (13.0-16.0); LYMPHOCYTE# 1.7 X10e3 (1.0-3.5); LYMPHOCYTE% 7.9 % (17.0-45.0); MEAN CORPUSCULAR HEMOGLOBIN 32.8 PG (28-34); MEAN CORPUSCULAR HGB CONC 32.8 g/dL (30-36); MEAN PLATELET VOLUME 9.2 FL (6.5-11.5); MONOCYTE% 9.4 % (3.0-12.0); NEUTROPHIL# 17.3 X10e3 (1.5-7.1); NEUTROPHIL% 82.5 % (40-75); PLATELET COUNT 195 X10e3 (140-420); RED BLOOD COUNT 3.91 X10e (3.90-5.60); RED CELL DISTRIBUTION WIDTH 13.1 % (11.0-15.5)
[2017-05-29 10:59] LABS: DIFF IND YES
[2017-05-29 11:08] LABS: INR 3.5; PARTIAL THROMBOPLASTIN TIME 40.2 SECONDS (23.5-31.3); PROTHROMBIN TIME (PATIENT) 38.3 SECONDS (10.0-11.7)
[2017-05-29 11:20] LABS: ALBUMIN SERUM 3.3 g/dL (3.5-5.0); ALKALINE PHOSPHATASE 87 U/L (32-92); ALT (SGPT) 41 U/L (10-40); AST (SGOT) 173 U/L (10-42); BILIRUBIN, DIRECT 0.3 mg/dL (0.0-0.2); BILIRUBIN,INDIRECT 1.3 mg/dL (0.0-0.9); BILIRUBIN,TOTAL 1.6 mg/dL (0.2-2.0); BLOOD UREA NITROGEN 42 mg/dL (9-23); BUN/CREATININE RATIO 15.55; CALCIUM SERUM 9.1 mg/dL (8.4-10.2); CARBON DIOXIDE 18 mmol/L (22-31); CHLORIDE 108 mmol/L (100-111); CREATININE SERUM 2.7 mg/dL (0.6-1.4); GLUCOSE FASTING 128 mg/dL (70-110); LIPASE 15 U/L (22-51); MAGNESIUM 2.1 mg/dL (1.6-3.0); PHOSPHOROUS 3.7 mg/dL (2.5-4.6); PROTEIN TOTAL SERUM 6.4 g/dL (6.0-8.3); SODIUM 140 mmol/L (135-145)
[2017-05-29 11:21] LABS: POC - TROPONIN 18.1 ng/mL (<=0.05)
[2017-05-29 11:22] LABS: AMYLASE <7 U/L (0-46); POTASSIUM 6.4 mmol/L (3.5-5.1)
[2017-05-29] MEDS ORDERED: PROTONIX PO (11:26)
[2017-05-29] MEDS ORDERED: COZAAR25 MG PO (11:26)
[2017-05-29 11:50] LABS: PLATELET ESTIMATE NORMAL (NORMAL)
[2017-05-29 11:51] LABS: RBC NORMAL YES
[2017-05-29 12:44] LABS: POC - CKMB 25.1 ng/mL (0.0-7.9); POC - TROPONIN 13.8 ng/mL (<=0.05)
[2017-05-29 13:23] LABS: BUN/CREATININE RATIO 16.66; CALCIUM SERUM 7.8 mg/dL (8.4-10.2); CREATININE SERUM 2.4 mg/dL (0.6-1.4); GLOM FILT RATE Estimated 23.1 mL/min (>60)
[2017-05-29 13:26] LABS: POTASSIUM 5.6 mmol/L (3.5-5.1)
[2017-05-29 14:40] LABS: URINE SOURCE CLEAN CATCH
[2017-05-29 14:42] LABS: ARTERIAL BLD GAS O2 SATURATION 88.6 % (90.0-100.0); ARTERIAL BLOOD GAS CARBOXY HB 0.7 %sat (0.0-9.0); ARTERIAL BLOOD GAS HCO3 14.9 mmol/L; ARTERIAL BLOOD GAS MET HB 1.3 %sat (0.0-2.0); ARTERIAL BLOOD GAS pH 7.212 (7.350-7.450)
[2017-05-29 14:46] LABS: URINE APPEARANCE CLEAR; URINE BLOOD 2+ (NEG); URINE COLOR DK YELLOW; URINE GLUCOSE NEG (NEG); URINE KETONE TRACE (NEG); URINE LEUKOCYTE ESTERASE TRACE (NEG); URINE NITRATE NEG (NEG); URINE PROTEIN 1+ (NEG); URINE SPECIFIC GRAVITY 1.031 (1.003-1.035)
[2017-05-29 14:48] LABS: URINE BACTERIA AUWI NEG (NEGATIVE); URINE SQUAMOUS EPITHELIAL CELL NONE SEEN /[HPF]; UWBCS1 AUWI 0-2 (0-5)
[2017-05-29 15:04] LABS: ARTERIAL BLOOD GAS PO2 72.1 mmHg (80.0-100); ARTERIAL DRAW? YES
[2017-05-29 15:05] LABS: ARTERIAL BLOOD GAS ART SITE RIGHT BRACHIAL; ARTERIAL BLOOD GAS DELIVERY VENT; ARTERIAL BLOOD GAS VENT MODE AC
[2017-05-29 15:15] LABS: CULTURE INDICATED? NO
[2017-05-29 15:16] LABS: URINE BILIRUBIN NEG (NEG)
[2017-05-29 15:17] LABS: U HYALINE CASTS AUWI 0-2 /[LPF]
[2017-05-29 17:01] LABS: BUN/CREATININE RATIO 16.25; CALCIUM SERUM 7.3 mg/dL (8.4-10.2); CREATININE SERUM 2.4 mg/dL (0.6-1.4); GLOM FILT RATE Estimated 23.1 mL/min (>60); POTASSIUM 5.4 mmol/L (3.5-5.1)
[2017-05-30 04:22] LABS: HEMATOCRIT 39.9 % (38.0-50.0); HEMOGLOBIN 13.2 gm/dL (13.0-16.0); MEAN CELL VOLUME 100.6 FL (83-96); MEAN CORPUSCULAR HEMOGLOBIN 33.3 PG (28-34); MEAN CORPUSCULAR HGB CONC 33.1 g/dL (30-36); MEAN PLATELET VOLUME 9.4 FL (6.5-11.5); RED BLOOD COUNT 3.97 X10e (3.90-5.60); RED CELL DISTRIBUTION WIDTH 13.9 % (11.0-15.5); WHITE BLOOD COUNT 23.1 X10e3 (4.0-10.5)
[2017-05-30 05:20] LABS: ARTERIAL BLOOD GAS HCO3 18.9 mmol/L; ARTERIAL BLOOD GAS MET HB 0.9 %sat (0.0-2.0); ARTERIAL BLOOD GAS PCO2 31.4 mmHg (35.0-45.0); ARTERIAL BLOOD GAS pH 7.387 (7.350-7.450)
[2017-05-30 05:22] LABS: ARTERIAL BLOOD GAS ALLEN TEST NORMAL; ARTERIAL BLOOD GAS ART SITE RIGHT BRACHIAL; ARTERIAL BLOOD GAS VENT MODE AC; ARTERIAL DRAW? YES
[2017-05-30 07:55] LABS: INR 5.7; PROTHROMBIN TIME (PATIENT) 62.1 SECONDS (10.0-11.7)
[2017-05-30 08:30] LABS: AMYLASE 7 U/L (0-46); LIPASE 19 U/L (22-51)
[2017-05-30 08:33] LABS: URINE APPEARANCE CLOUDY; URINE BILIRUBIN NEG (NEG); URINE BLOOD 3+ (NEG); URINE COLOR DK YELLOW; URINE GLUCOSE NEG (NEG); URINE KETONE NEG (NEG); URINE LEUKOCYTE ESTERASE 2+ (NEG); URINE NITRATE NEG (NEG); URINE PROTEIN 1+ (NEG); URINE SPECIFIC GRAVITY 1.029 (1.003-1.035)
[2017-05-30 08:36] LABS: URBCS1 AUWI 100-200 /[HPF] (0-2); URINE BACTERIA AUWI NEG (NEGATIVE); URINE SQUAMOUS EPITHELIAL CELL OCC /[HPF]; UWBCS1 AUWI 50-100 (0-5)
[2017-05-30 08:51] LABS: U HYALINE CASTS AUWI 0-2 /[LPF]
[2017-05-30 08:53] LABS: ALBUMIN SERUM 2.7 g/dL (3.5-5.0); BUN/CREATININE RATIO 15.8; CREATININE SERUM 3.1 mg/dL (0.6-1.4); GLOM FILT RATE Estimated 16.9 mL/min (>60); MAGNESIUM 1.6 mg/dL (1.6-3.0); PHOSPHOROUS 4.8 mg/dL (2.5-4.6); POTASSIUM 5.2 mmol/L (3.5-5.1); PROTEIN TOTAL SERUM 5.1 g/dL (6.0-8.3)
[2017-05-30 08:55] LABS: CALCIUM SERUM 5.6 mg/dL (8.4-10.2)
[2017-05-30 09:31] LABS: LEGIONELLA AG URINE NEG (NEG)
[2017-05-30 15:02] LABS: BUN/CREATININE RATIO 16.25; CREATININE SERUM 3.2 mg/dL (0.6-1.4); GLOM FILT RATE Estimated 16.3 mL/min (>60); POTASSIUM 4.3 mmol/L (3.5-5.1)
[2017-05-30 15:13] LABS: CALCIUM SERUM 8.1 mg/dL (8.4-10.2)
[2017-05-30 15:57] LABS: INR 2.4
[2017-05-30 16:00] LABS: PROTHROMBIN TIME (PATIENT) 25.7 SECONDS (10.0-11.7)
[2017-05-31 00:49] LABS: INR 1.6
[2017-05-31 00:50] LABS: PROTHROMBIN TIME (PATIENT) 17.6 SECONDS (10.0-11.7)
[2017-05-31 04:00] LABS: BASOPHIL# 0.1 X10e3 (0-0.3); BASOPHIL% 0.8 % (0-2.5); EOSINOPHIL% 0.3 % (0.0-7.0); LYMPHOCYTE# 1.6 X10e3 (1.0-3.5); LYMPHOCYTE% 9.7 % (17.0-45.0); MEAN CORPUSCULAR HEMOGLOBIN 33.4 PG (28-34); MEAN CORPUSCULAR HGB CONC 33.4 g/dL (30-36); MEAN PLATELET VOLUME 9.4 FL (6.5-11.5); MONOCYTE# 1.5 X10e3 (0-1.0); MONOCYTE% 8.8 % (3.0-12.0); NEUTROPHIL# 13.4 X10e3 (1.5-7.1); NEUTROPHIL% 80.4 % (40-75); PLATELET COUNT 142 X10e3 (140-420); RED CELL DISTRIBUTION WIDTH 13.5 % (11.0-15.5); WHITE BLOOD COUNT 16.6 X10e3 (4.0-10.5)
[2017-05-31 04:01] LABS: DIFF IND NO
[2017-05-31 04:26] LABS: ALBUMIN SERUM 2.9 g/dL (3.5-5.0); BILIRUBIN,TOTAL 1.7 mg/dL (0.2-2.0); BUN/CREATININE RATIO 17.24; CALCIUM SERUM 7.8 mg/dL (8.4-10.2); CREATININE SERUM 2.9 mg/dL (0.6-1.4); GLOM FILT RATE Estimated 18.3 mL/min (>60); MAGNESIUM 1.8 mg/dL (1.6-3.0); PHOSPHOROUS 3.8 mg/dL (2.5-4.6); POTASSIUM 3.4 mmol/L (3.5-5.1); PROTEIN TOTAL SERUM 5.6 g/dL (6.0-8.3)
[2017-05-31 04:55] LABS: ARTERIAL BLD GAS O2 SATURATION 94.9 % (90.0-100.0); ARTERIAL BLOOD GAS CARBOXY HB 0.4 %sat (0.0-9.0); ARTERIAL BLOOD GAS HCO3 21.1 mmol/L; ARTERIAL BLOOD GAS MET HB 0.9 %sat (0.0-2.0); ARTERIAL BLOOD GAS PCO2 33.8 mmHg (35.0-45.0); ARTERIAL BLOOD GAS pH 7.405 (7.350-7.450)
[2017-05-31 05:01] LABS: ARTERIAL BLOOD GAS ALLEN TEST NORMAL; ARTERIAL BLOOD GAS ART SITE RIGHT RADIAL; ARTERIAL BLOOD GAS PO2 79.1 mmHg (80.0-100); ARTERIAL BLOOD GAS VENT MODE AC; ARTERIAL DRAW? YES
[2017-05-31 14:22] LABS: INR 1.5; PARTIAL THROMBOPLASTIN TIME 35.7 SECONDS (23.5-31.3); PROTHROMBIN TIME (PATIENT) 16.7 SECONDS (10.0-11.7)
[2017-05-31 15:34] LABS: %MB 6.7 % (0.0-4.0); MB 11.4 ng/ml
[2017-05-31 22:11] LABS: %MB 5.8 % (0.0-4.0); MB 9.9 ng/ml
[2017-06-01 01:15] LABS: ALBUMIN SERUM 2.7 g/dL (3.5-5.0); BILIRUBIN,TOTAL 1.8 mg/dL (0.2-2.0); BUN/CREATININE RATIO 18.46; CALCIUM SERUM 7.3 mg/dL (8.4-10.2); CREATININE SERUM 2.6 mg/dL (0.6-1.4); GLOM FILT RATE Estimated 20.9 mL/min (>60); PHOSPHOROUS 3.3 mg/dL (2.5-4.6); POTASSIUM 3.7 mmol/L (3.5-5.1); PROTEIN TOTAL SERUM 5.3 g/dL (6.0-8.3)
[2017-06-01 03:47] LABS: ARTERIAL BLD GAS O2 SATURATION 94.5 % (90.0-100.0); ARTERIAL BLOOD GAS CARBOXY HB 0.2 %sat (0.0-9.0); ARTERIAL BLOOD GAS HCO3 23.1 mmol/L; ARTERIAL BLOOD GAS PCO2 36.2 mmHg (35.0-45.0); ARTERIAL BLOOD GAS pH 7.414 (7.350-7.450)
[2017-06-01 03:52] LABS: ARTERIAL BLOOD GAS PO2 71.6 mmHg (80.0-100)
[2017-06-01 03:53] LABS: ARTERIAL BLOOD GAS ALLEN TEST NORMAL; ARTERIAL BLOOD GAS ART SITE RIGHT RADIAL; ARTERIAL BLOOD GAS DELIVERY VENT; ARTERIAL BLOOD GAS VENT MODE AC; ARTERIAL DRAW? YES
[2017-06-01 05:30] LABS: BASOPHIL% 0.2 % (0-2.5); EOSINOPHIL# 0.1 X10e3 (0-0.7); EOSINOPHIL% 0.3 % (0.0-7.0); HEMATOCRIT 32.7 % (38.0-50.0); HEMOGLOBIN 10.9 gm/dL (13.0-16.0); LYMPHOCYTE# 0.9 X10e3 (1.0-3.5); LYMPHOCYTE% 5.4 % (17.0-45.0); MEAN CELL VOLUME 99.8 FL (83-96); MEAN CORPUSCULAR HEMOGLOBIN 33.2 PG (28-34); MEAN CORPUSCULAR HGB CONC 33.2 g/dL (30-36); MEAN PLATELET VOLUME 9.1 FL (6.5-11.5); MONOCYTE# 1.5 X10e3 (0-1.0); MONOCYTE% 9.1 % (3.0-12.0); NEUTROPHIL# 13.7 X10e3 (1.5-7.1); PLATELET COUNT 158 X10e3 (140-420); RED BLOOD COUNT 3.28 X10e (3.90-5.60); RED CELL DISTRIBUTION WIDTH 13.3 % (11.0-15.5); WHITE BLOOD COUNT 16.2 X10e3 (4.0-10.5)
[2017-06-01 05:38] LABS: DIFF IND YES
[2017-06-01 06:39] LABS: ANISOCYTOSIS SL; PLATELET ESTIMATE NORMAL (NORMAL)
== END 2017-06-01 22:00 | disposition expired | DRG 871 ==
LOC: CED 10:06 → CEDOF 12:40 → CED 13:04 → CICCU2 15:55 → CEDOF 15:55 → CICCU2 05-30 06:02
PROVIDERS: Emergency Medicine; Internal Medicine; Internal Medicine Nephrology; Internal Medicine Pulmonary Disease; Nurse Practitioner; Radiology Diagnostic Radiology; Surgery
PROC: B24BYZZ Ultrasonography of Heart with Aorta using Other Contrast (ICD-10-PCS; principal; 2017-05-29)
PROC: 5A1945Z Respiratory Ventilation, 24-96 Consecutive Hours (ICD-10-PCS; 2017-05-29)
PROC: 0BH17EZ Insertion of Endotracheal Airway into Trachea, Via Natural or Artificial Opening (ICD-10-PCS; 2017-05-29)
PROC: 05H333Z Insertion of Infusion Device into Right Innominate Vein, Percutaneous Approach (ICD-10-PCS; 2017-05-29)
PROC: B54MZZA Ultrasonography of Right Upper Extremity Veins, Guidance (ICD-10-PCS; 2017-05-29)
DX: A41.9 Sepsis, unspecified organism (principal); J96.00 Acute respiratory failure, unspecified whether with hypoxia or hypercapnia; I21.4 Non-ST elevation (NSTEMI) myocardial infarction; N17.0 Acute kidney failure with tubular necrosis; R65.21 Severe sepsis with septic shock; K72.00 Acute and subacute hepatic failure without coma; I50.21 Acute systolic (congestive) heart failure; E87.2 Acidosis; K81.0 Acute cholecystitis; I13.0 Hypertensive heart and chronic kidney disease with heart failure and stage 1 through stage 4 chronic kidney disease, or unspecified chronic kidney disease; E87.5 Hyperkalemia; E11.22 Type 2 diabetes mellitus with diabetic chronic kidney disease; I25.10 Atherosclerotic heart disease of native coronary artery without angina pectoris; Z95.0 Presence of cardiac pacemaker; Z79.01 Long term (current) use of anticoagulants; Z95.1 Presence of aortocoronary bypass graft; N18.3 Chronic kidney disease, stage 3 (moderate); Z96.652 Presence of left artificial knee joint; Z79.82 Long term (current) use of aspirin; Z51.5 Encounter for palliative care
CPT/HCPCS: 31500; 36415; 36430; 36556; 36600; 71010; 71250; 74000; 74176; 76705; 76770; 80048; 80053; 80076; 81003; 82150; 82308; 82550; 82553; 82803; 82947; 83605; 83690; 83735; 84100; 84132; 84300; 84484; 85025; 85027; 85610; 85730; 86900; 86901; 87040; 87070; 87205; 87449; 87899; 89190; 93005; 93306; 94002; 94003; 94640; 94760; 94761; 96360; 96361; 99291; C9113; J0282; J0456; J0610; J0692; J0696; J1250; J1644; J2060; J2250; J2270; J2543; J3010; J3370; J3430; J3475; P9059